=== PATIENT | female | born 1960 ===

== ENCOUNTER 2020-05-13 15:36 | Emergency (ER) | payer MEDICAID, OTHER ==
[~2020-05-13] VITALS: Ht 167.7 cm; Wt 90.7 kg
[2020-05-13] MEDS ORDERED: morphine INJ 10 MG/ML 1ML (SYR OR VIAL) IM STA (16:10)
--- NOTE | 2020-05-13 16:53 | Diagnostic Imaging Report ---
EXAMINATION: CT head and face without contrast. TECHNIQUE: Multiple contiguous axial images were obtained through the face and brain without the use of intravenous contrast. All CT scans use one or more of the following dose optimizing techniques: automated exposure control, MA and/or KvP adjustment based on a patient size and exam type, or iterative reconstruction. HISTORY: Trauma COMPARISON: None available. FINDINGS: The fong-white matter differentiation is normal. No mass effect or midline shift. The ventricles are normal in size and configuration. Basilar cisterns are patent. There are no intra- or extra-axial fluid collections. There is no intracranial hemorrhage. There is a right occipital approach ventriculostomy catheter with a tip near the foramen of [place]. The sphenoid sinus has been partially resected with what is likely bone graft material at the floor of the sella turcica. Turcica is mostly empty and the adjacent perimesencephalic cisterns are mildly dilated likely related to prior tumor resection. The orbits are normal. Paranasal sinuses are normal. Mastoid air cells are clear. No soft tissue abnormality is seen. No osseus lesions or fractures are seen. No fracture is seen in the face. The nasal bones are normal. Mandible and maxillae are normal. Zygomatic arches are normal. Pterygoid plates are normal. No soft tissue abnormality is seen. IMPRESSION: 1. No acute intracranial abnormality. 2. No fracture in the face. 2. 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 Ventriculoperitoneal shunt is in expected position. Dictated by: Dictated on workstation # [id number]
[2020-05-13] MEDS ORDERED: HYDROcodone/APAP 7.5 MG/325 MG (LORTAB, LORCET PLUS) TABLET PO ONE (17:00)
--- NOTE | 2020-05-13 17:13 | ED General ---
General Chief Complaint: Facial Problems Stated Complaint: HEAD PAIN/HX TUMOR Source of Information: Patient, [employer] Exam Limitations: Language Barrier History of Present Illness Date Seen by Provider: May 13, 2020 Time Seen by Provider: 16:02 Initial Comments Here with complaint of left facial pain that has been going on for a few days but worse today. Patient states it feels like when she had trigeminal neuralgia. Previously on gabapentin but is not on that now. She did try Tylenol at 3 AM and that did not help. She also took Advil 600 mg 30 minutes prior to arrival. That did not help. Denies facial trauma. 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 That has been stable and without problems. Denies nausea or vomiting. Denies upper respiratory symptoms. Here visiting family. Information via principal cyber engineer line. Timing/Duration: 1-2 Days Severity: Moderate Associated Systoms: No Chest Pain, No Cough, No Fever/Chills, No Nausea/Vomiting, No Shortness of Air, No Weakness Allergies and Home Medications Allergies Coded Allergies: Penicillins (Verified Allergy, Unknown, 05/13/20) cephalexin (Verified Allergy, Unknown, 05/13/20) Uncoded Allergies: sea food (Allergy, Unknown, 05/13/20) Patient Home Medication List Home Medication List Reviewed: Yes Review of Systems Review of Systems Constitutional: see HPI; No chills, No fever EENTM: other (Facial pain on the left that extends from the ear to the upper and lower jaw and roof of mouth on the left side.); No nose congestion, No throat pain Respiratory: No cough, No short of breath Cardiovascular: no symptoms reported Gastrointestinal: no symptoms reported Genitourinary: no symptoms reported Musculoskeletal: see HPI Skin: No change in color, No lesions Psychiatric/Neurological: See HPI Past Vqvnloy-Zgvcbr-Vykqqu Hx Past Med/Social Hx: Reviewed Nursing Past Med/Soc Hx Patient Social History Alcohol Use: Denies Use Recreational Drug Use: No Smoking Status: Never a Smoker Recent Foreign Travel: No Contact w/Someone Who Travel: No Past Medical History Surgeries: Yes Brain Shunt, Thyroidectomy Respiratory: No Cardiac: No Neurological: Yes Brain Tumor Genitourinary: No Gastrointestinal: No Musculoskeletal: No Endocrine: Yes Hypothyroidsim Cancer: Yes Brain Psychosocial: No Family Medical History Reviewed Nursing Family Hx No Pertinent Family Hx Physical Exam Vital Signs Capillary Refill : Height, Weight, BMI Height: '" Weight: lbs. oz. kg; BMI Method: General Appearance: WD/WN, Mild Distress HEENT: PERRL/EOMI, TMs Normal, Pharynx Normal, Other (No obvious gum disease, tooth decay or abscess in the mouth.) Neck: Non Tender, Supple Respiratory: Lungs Clear, Normal Breath Sounds Cardiovascular: Regular Rate, Rhythm, No Murmur Gastrointestinal: Non Tender, Soft Back: Normal Inspection, No CVA Tenderness, No Vertebral Tenderness Extremity: Normal Range of Motion, Non Tender Neurologic/Psychiatric: Alert, Oriented x3 Skin: Normal Color, Warm/Dry Progress/Results/Core Measures Suspected Sepsis SIRS Temperature: Pulse: Respiratory Rate: Blood Pressure / Mean: Results/Orders My Orders Orders - DRE TOM MD Morphine Injection (Morphine Injection (05/13/20 16:10) Dexamethasone Injection (Decadron Inje (05/13/20 16:15) Ct Head/Maxillofacial Wo (05/13/20 16:10) Medications Given in ED Current Medications Medications Dose Ordered Sig/Ravi Route Start Time Stop Time Status Last Admin Dose Admin Acetaminophen/ Hydrocodone Bitart 1 ea ONCE ONCE PO 05/13/20 17:00 05/13/20 17:01 DC 05/13/20 17:03 1 EA Dexamethasone Sodium Phosphate 10 mg ONCE ONCE IM 05/13/20 16:15 05/13/20 16:16 DC 05/13/20 16:26 10 MG Vital Signs/I&O Capillary Refill : Progress Note : Progress Note Seen and evaluated. Morphine 5 mg IM and dexamethasone 10 mg IM ordered. We will get CT of the head and face due to history of previous tumor, surgery and [employer] shunt. She is also had mastoidectomy on the left. Monitor patient. 1700: CT complete shows no significant findings. Pain continues. Hydrocodone 7.5 mg p.o. Monitor patient. Diagnostic Imaging Diagonstic Imaging: CT Plain Films/CT/US/NM/MRI: facial bones, head Comments [facility], [place] NAME: ROSA CLARKGARRET CRUZ REC#: [id number] PT STATUS: REG ER : 1960 PHYSICIAN: DRE TOM MD ADMIT DATE: 05/13/20/ER Signed Date of Exam:05/13/20 CT HEAD/MAXILLOFACIAL WO EXAMINATION: CT head and face without contrast. TECHNIQUE: Multiple contiguous axial images were obtained through the face and brain without the use of intravenous contrast. All CT scans use one or more of the following dose optimizing techniques: automated exposure control, MA and/or KvP adjustment based on a patient size and exam type, or iterative reconstruction. HISTORY: Trauma COMPARISON: None available. FINDINGS: The fong-white matter differentiation is normal. No mass effect or midline shift. The ventricles are normal in size and configuration. Basilar cisterns are patent. There are no intra- or extra-axial fluid collections. There is no intracranial hemorrhage. There is a right occipital approach ventriculostomy catheter with a tip near the foramen of [place]. The sphenoid sinus has been partially resected with what is likely bone graft material at the floor of the sella turcica. Turcica is mostly empty and the adjacent perimesencephalic cisterns are mildly dilated likely related to prior tumor resection. The orbits are normal. Paranasal sinuses are normal. Mastoid air cells are clear. No soft tissue abnormality is seen. No osseus lesions or fractures are seen. No fracture is seen in the face. The nasal bones are normal. Mandible and maxillae are normal. Zygomatic arches are normal. Pterygoid plates are normal. No soft tissue abnormality is seen. IMPRESSION: 1. No acute intracranial abnormality. 2. No fracture in the face. 2. 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 Ventriculoperitoneal shunt is in expected position. Dictated by: Dictated on workstation # [id number] Dict: 05/13/201645 Trans: 05/13/201653 [facility] [id number] Interpreted by: ADALID ALLEN MD Electronically signed by: ADALID ALLEN MD 05/13/201653 Departure Impression Primary Impression: Trigeminal neuralgia of left side of face Disposition: HOME, SELF-CARE Condition: Improved Departure-Patient Inst. Referrals: NO,LOCAL PHYSICIAN (PCP/Family) Primary Care Physician Patient Instructions: Trigeminal Neuralgia Add. Discharge Instructions: All discharge instructions reviewed with patient and/or family. Voiced understanding. Follow-up with your doctor when you return home to discuss further treatment and prescriptions. Return for worse pain, fever, vomiting, weakness, breathing problems or other concerns as needed. Scripts Gabapentin (Neurontin) 300 Mg Capsule 300 MG PO TID, #90 CAP 1 cap day one, 1 cap BID on day 2, then 1 cap TID thereafter Prov: DRE TOM MD 05/13/20 DRE TOM MD May 13, 2020 17:13
[2020-05-13] MEDS ORDERED: GABA300C PO (17:26)
[2020-05-13] MEDS ORDERED: HYDR-4226 PO (17:26)
[2020-05-13 17:47] VITALS: BP 126/84
== END 2020-05-13 17:47 | disposition home or self-care (01) ==
LOC: ER 15:39
DX: G50.0 Trigeminal neuralgia (principal); Z85.841 Personal history of malignant neoplasm of brain; Z88.0 Allergy status to penicillin; Z88.1 Allergy status to other antibiotic agents
CPT/HCPCS: 70450; 70486